=== PATIENT | male | born 1985 | race African-American/Black ===

== ENCOUNTER 2019-07-09 16:55 | Emergency (ER) | payer SELFPAY ==
[~2019-07-09] VITALS: Ht 180.3 cm; Wt 68.2 kg
[2019-07-09 17:02] VITALS: Ht 180.3 cm; Wt 68.2 kg
[2019-07-09] MEDS ORDERED: TUMS X-STR300 MG PO (17:04)
[2019-07-09 17:39] LABS: BASOPHILS 0.3 % (0-2); EOSINOPHILS 3.1 % (0-7); HEMATOCRIT 41.8 % (42.0-54.0); HEMOGLOBIN 14.4 g/dL (13.5-17.5); IMMATURE GRANULOCYTES 0.1 % (0-5); LYMPHOCYTES 27.8 % (15-50); MCH 30.7 pg (26.0-34.0); MCHC 34.4 g/dL (31.0-37.0); MCV 89.1 fL (80.0-100.0); MEAN PLATELET VOLUME 10.4 fL (7.4-10.4); MONOCYTES 13.3 % (2-11); NEUTROPHILS 55.4 % (40-80); RBC 4.69 10x6/uL (4.20-6.10); RDW 13.1 % (11.5-14.5); WBC 9.6 10x3/uL (4.8-10.8)
[2019-07-09 17:40] LABS: APPEARANCE CLEAR (CLEAR); BILIRUBIN NEGATIVE (NEGATIVE); COLOR YELLOW (YELLOW); GLUCOSE NEGATIVE (NEGATIVE); KETONE NEGATIVE (NEGATIVE); NITRITE NEGATIVE (NEGATIVE); PLATELET COUNT 311 10x3/uL (130-400); PROTEIN NEGATIVE (NEGATIVE); SPECIFIC GRAVITY 1.015 (1.005-1.020); UROBILINOGEN NORMAL (NORMAL)
[2019-07-09 18:47] LABS: ANION GAP 11.3 mmol/L (8-16); CALCIUM 8.6 mg/dL (8.5-10.1); CARBON DIOXIDE 27.9 mmol/L (21.0-32.0); CREATININE - SERUM 1.2 mg/dL (0.6-1.3); POTASSIUM - SERUM 4.2 mmol/L (3.5-5.1)
[2019-07-09 18:49] LABS: ALBUMIN 3.7 g/dL (3.4-5.0); BILIRUBIN - TOTAL 0.34 mg/dL (0.2-1.3); PROTEIN - SERUM 6.9 g/dL (6.4-8.2)
[2019-07-09] MEDS ORDERED: LOMOTIL 2.5-0.1 EAC1 PO (20:34)
[2019-07-09] MEDS ORDERED: ZOFRAN ODT4 MG/UDTAB PO (20:34)
[2019-07-09 21:09] VITALS: BP 118/75
== END 2019-07-09 21:09 | disposition home or self-care (01) ==
LOC: D.ER 16:55
PROVIDERS: Family Medicine
DX: A08.4 Viral intestinal infection, unspecified (principal); R10.9 Unspecified abdominal pain

== ENCOUNTER 2019-08-03 09:49 | Emergency (ER) | payer SELFPAY ==
[~2019-08-03] VITALS: Ht 180.3 cm; Wt 68.2 kg
[~2019-08-03 09:49] MED LIST: LOMOTIL 2.5-0.1 EAC1 PO; TUMS X-STR300 MG PO; ZOFRAN ODT4 MG/UDTAB PO
[2019-08-03 10:06] VITALS: Ht 180.3 cm; Wt 68.2 kg
[2019-08-03 11:09] VITALS: BP 124/68
== END 2019-08-03 11:10 | disposition home or self-care (01) ==
LOC: D.ER 09:49
DX: R55 Syncope and collapse (principal)

== ENCOUNTER 2020-08-17 08:00 | Outpatient (CLI) | payer OTHER ==
[~2020-08-17 08:00] MED LIST changes: +AMITIZA24 MCG PO; +DULCOLAX5 MG PO; +SINGULAIR10 MG PO; +SYMBICORT 16010.2 GM INH; +VENTOLIN HFA [SP8 GM INH
[2020-08-17] MEDS ORDERED: SYMBICORT 16010.2 GM INH (11:12)
[2020-08-17] MEDS ORDERED: VENTOLIN HFA [SP8 GM (11:13)
[2020-08-17] MEDS ORDERED: NORVASC5 MG PO (11:14)
[2020-09-07] MEDS ORDERED: LOPRESSOR25 MG PO (13:20)
[2020-09-07] MEDS ORDERED: WIXELA INHUB INH (13:21)
[2020-09-07] MEDS ORDERED: PEPCID40 MG PO (13:21)
[2020-09-07] MEDS ORDERED: MUCINEX600 MG PO (13:22)
[2020-09-07] MEDS ORDERED: ULTRAM50 MG PO (13:23)
[2020-09-10 10:47] VITALS: BMI 20.2
== END 2020-08-17 08:01 | disposition home or self-care (01) ==
LOC: D.OPS 08:00
PROVIDERS: ATTEND Internal Medicine
DX: K82.8 Other specified diseases of gallbladder (principal); Z53.8 Procedure and treatment not carried out for other reasons

== ENCOUNTER 2020-09-10 07:15 | Day surgery (SDC) | payer OTHER ==
[2020-08-17 12:12] LABS: BASOPHILS 0.3 % (0-2); EOSINOPHILS 0.7 % (0-7); HEMATOCRIT 46.6 % (42.0-54.0); HEMOGLOBIN 15.7 g/dL (13.5-17.5); IMMATURE GRANULOCYTES 0.2 % (0-5); LYMPHOCYTE ABS# 2.26 10x3/uL (1.32-3.57); LYMPHOCYTES 22.7 % (15-50); MCH 30.1 pg (26.0-34.0); MCHC 33.7 g/dL (31.0-37.0); MCV 89.4 fL (80.0-100.0); MEAN PLATELET VOLUME 9.2 fL (7.4-10.4); MONOCYTES 10.4 % (2-11); NEUTROPHIL ABS# 6.54 10x3/uL (1.78-5.38); NEUTROPHILS 65.7 % (40-80); RBC 5.21 10x6/uL (4.20-6.10)
[2020-08-17 12:18] LABS: PLATELET COUNT 243 10x3/uL (130-400)
[~2020-09-10] VITALS: Ht 180.3 cm; Wt 65.8 kg
[~2020-09-10 07:15] MED LIST changes: +LOPRESSOR25 MG PO; +MUCINEX600 MG PO; +NORVASC5 MG PO; +PEPCID40 MG PO; +ULTRAM50 MG PO; +VENTOLIN HFA [SP8 GM; +WIXELA INHUB INH
[2020-09-10 10:47] VITALS: BP 117/71; Ht 180.3 cm; Wt 65.8 kg
[2020-09-10 11:53] LABS: BASOPHILS 0.2 % (0-2); EOSINOPHILS 0.7 % (0-7); HEMATOCRIT 43.7 % (42.0-54.0); IMMATURE GRANULOCYTES 0.1 % (0-5); LYMPHOCYTE ABS# 1.84 10x3/uL (1.32-3.57); LYMPHOCYTES 17.2 % (15-50); MCH 30.4 pg (26.0-34.0); MCHC 34.3 g/dL (31.0-37.0); MCV 88.5 fL (80.0-100.0); MEAN PLATELET VOLUME 9.3 fL (7.4-10.4); MONOCYTES 9.7 % (2-11); NEUTROPHIL ABS# 7.71 10x3/uL (1.78-5.38); NEUTROPHILS 72.1 % (40-80); PLATELET COUNT 250 10x3/uL (130-400); RBC 4.94 10x6/uL (4.20-6.10); RDW 13.4 % (11.5-14.5); WBC 10.7 10x3/uL (4.8-10.8)
[2020-09-10 12:05] LABS: ANION GAP 13.7 mmol/L (8-16); CALCIUM 8.8 mg/dL (8.5-10.1); CREATININE - SERUM 1.4 mg/dL (0.6-1.3); POTASSIUM - SERUM 4.7 mmol/L (3.5-5.1)
--- NOTE | 2020-09-10 13:39 | HP ---
PATIENT: BOUCHRA YANG MEDICAL RECORD: [id number] ACCOUNT: [id number] LOCATION:[facility] : 83 ADMISSION DATE: 09/10/20 PCP: BOUCHRA WEAVER MD HISTORY AND PHYSICAL EXAMINATION CHIEF COMPLAINT: Gallbladder problems. HISTORY OF PRESENT ILLNESS: The patient has biliary dyskinesia by a PIPIDA scan. The patient states that after eating, he feels bloated, gassy and has diarrhea frequently. The risks, possible complications, and alternatives to laparoscopic cholecystectomy, intraoperative cholangiography, possible liver biopsy were explained to the patient. He elects to proceed. PAST MEDICAL AND SURGICAL HISTORY: Irregular heartbeat, hypertension, gastroesophageal reflux, asthma. HOME MEDICATIONS: Have been reviewed. ALLERGIES: SHRIMP. PHYSICAL EXAMINATION: GENERAL: The patient does not appear acutely ill. He does not appear chronically ill. VITAL SIGNS: Reviewed. EARS: External ears appear normal. EYES: Extraocular movements are intact. NECK: Trachea is midline. CHEST: No intercostal retractions. PULMONARY: Nonlabored. No stridor. IMPRESSION: Biliary dyskinesia. PLAN: Laparoscopic cholecystectomy, intraoperative cholangiography, possible liver biopsy. TRANSINT:[id number] Voice Confirmation ID: [id number] DOCUMENT ID: [id number] KONRAD LOPEZ MD at 1339 CC: FERNANDA COFFEY and BOUCHRA WEAVER MD [id number] DICTATION DATE: 09/10/20 1206 SHRIMP HEADER: 09/10/20 1226 [facility] [address] [id number]
--- NOTE | 2020-09-10 15:36 | NUR ---
PT REMAINS UNAROUSABLE WITH OPA IN PLACE. VSS.
--- NOTE | 2020-09-10 15:37 | NUR ---
PT AWAKE, OPA REMOVED
--- NOTE | 2020-09-12 07:09 | OP ---
PATIENT NAME: BOUCHRA YANG MEDICAL RECORD: [id number] :83 LOCATION:.[facility] ADMISSION DATE: SURGEON: KONRAD LOPEZ MD DATE OF OPERATION: 09/10/2020 PREOPERATIVE DIAGNOSIS: Biliary dyskinesia. POSTOPERATIVE DIAGNOSIS: Biliary dyskinesia. PROCEDURE: 1. Laparoscopic cholecystectomy. 2. Intraoperative cholangiography without immediate surgeon interpretation. BLOOD LOSS: Minimal. SURGEON: Dr. Lopez. NURSING SURGICAL SERVICES DIRECTOR: Wilfredo Whitney, third year medical student. The risks, possible complications, alternatives to the procedure were explained to the patient. He elected to proceed. The discussion specifically included, but was not limited to, bleeding requiring emergency reoperation, infection, intestinal injury, and common bile duct injury. The patient was conveyed to the operating room electively on 09/10/2020. General anesthesia was induced by the anesthesia staff. The abdomen was sterilely prepped and draped. An incision was accomplished within the umbilicus. I dissected down to a very small umbilical hernia. I sharply cleaned overlying connective tissue from the fascia surrounding the small hernia. Stay sutures of 0 Vicryl were placed on either side of the hernia. I then incised through the hernia in the midline using the 0 Vicryls as traction sutures. The peritoneal cavity was entered bluntly with a 12-mm mm trocar. CO2 insufflation was begun. Once a sufficient pneumoperitoneum had been achieved, a 5-mm trocar was inserted in the left upper quadrant, another 5-mm trocar was inserted in the epigastrium, another 5-mm trocar was inserted far laterally in the right upper quadrant. During insertion of all the trocars, there appeared to had been no injury to the bowels, any intraperitoneal or retroperitoneal structures. An abdominal survey was undertaken. The liver was of normal size. I grasped the gallbladder. I advanced a cholangiogram trocar. I punctured the fundus of the gallbladder. I then aspirated bile. I injected dye. Under real time fluoroscopy, static images were obtained and these are cholangiographic images that were sent to the radiologist for interpretation. I then aspirated bile and removed the cholangiogram trocar. The gallbladder was grasped and retracted cephalad. The infundibulum was grasped and retracted laterally. Blunt dissection was begun in the triangle of Calot. One cystic artery and one cystic duct were identified. These were clipped multiply and divided between clips. The gallbladder was then excised from its bed in the liver. It was placed within a bag retrieval device and was withdrawn through the umbilical fascial defect. OPERATIVE REPORT [id number] BOUCHRA YANG 12 mm trocars were placed and the abdomen reinsufflated. I irrigated and aspirated the right upper quadrant. There was no bleeding even at low pressure of 8. All the trocars were removed and the abdomen desufflated. The fascia at the umbilicus was closed with horizontal mattress 0 Vicryl sutures. The skin at the umbilicus was closed with a single subcuticular 3-0 Vicryl as well as multiple interrupted 4-0 Vicryl Rapide sutures. The other trocar sites were closed with interrupted intracuticular 3-0 Vicryls. Benzoin and Steri-Strips were applied. The patient was then extubated and conveyed to post-anesthesia care unit where he was in stable condition. TRANSINT:[id number] Voice Confirmation ID: [id number] DOCUMENT ID: [id number] KONRAD LOPEZ MD at 0709 CC: [id number] DICTATION DATE: 09/11/20 1745 CLOTHING SORTER: 09/12/20 0246 [facility] 09/10/[id number] [place] [address]
== END 2020-09-10 18:20 | disposition home or self-care (01) ==
LOC: D.OPS 07:15
PROVIDERS: Anesthesiology; ATTEND Surgery
DX: K82.8 Other specified diseases of gallbladder (principal); R00.8 Other abnormalities of heart beat; I10 Essential (primary) hypertension; K21.9 Gastro-esophageal reflux disease without esophagitis; J45.909 Unspecified asthma, uncomplicated

== ENCOUNTER → 2020-12-11 07:39 | Outpatient (CLI) | payer OTHER ==
[2020-09-10 10:47] VITALS: BMI 20.2
== END | disposition home or self-care (01) ==
LOC: D.CT 07:39
PROVIDERS: ATTEND Nurse Practitioner
DX: R10.9 Unspecified abdominal pain (principal)